=== PATIENT | male | born 1980 | race Caucasian/White ===

== ENCOUNTER 2018-03-02 12:16 | Emergency (ER) | payer BC, OTHER ==
[~2018-03-02] VITALS: Ht 177.8 cm; Wt 95.0 kg
[2018-03-02 12:24] VITALS: TEMP 37.1; Ht 177.8 cm; Wt 95.0 kg
[2018-03-02] MEDS ORDERED: CETI10TA10 PO (12:37)
[2018-03-02 13:33] LABS: BASO % 0.8 %; BASO ABS # 0.06 K/uL (0-0.2); EOS % 3.1 %; EOS ABS # 0.24 K/uL (0-0.5); HEMATOCRIT 43.1 % (42-52); HEMOGLOBIN 15.4 g/dL (14.0-18.0); IG# 0.01 K/uL (0.00-0.02); LYMPH % 24.3 %; MEAN CELL VOLUME 81.6 fL (80-100); MEAN CORPUSCULAR HEMOGLOBIN 29.2 pg (25-34); MEAN CORPUSCULAR HGB CONC 35.7 g/dl (32-36); MEAN PLATELET VOLUME 9.5 fL (7.4-10.4); MONO % 5.9 %; MONO ABS # 0.46 K/uL (0.11-0.59); NEUT % 65.8 %; NEUT ABS # 5.15 K/uL (1.4-6.5); PLATELET COUNT 288 K/uL (130-400); RED CELL DISTRIBUTION WIDTH CV 12.7 % (11.5-14.5); RED CELL DISTRIBUTION WIDTH SD 38.1 fL (36.4-46.3); WHITE BLOOD COUNT 7.82 K/uL (4.8-10.8)
[2018-03-02 13:45] LABS: PTT PATIENT 32.7 SECONDS (21.0-31.0)
[2018-03-02 13:47] LABS: ALBUMIN 4.1 gm/dl (3.4-5.0); ALT/SGPT 44 U/L (12-78); AST/SGOT 23 U/L (15-37); BLOOD UREA NITROGEN 13 mg/dl (7-18); CALCIUM 9.3 mg/dl (8.5-10.1); CARBON DIOXIDE 27 mmol/L (21-32); CREATININE 1.05 mg/dl (0.60-1.40); GLUCOSE 98 mg/dl (70-99); POTASSIUM 3.8 mmol/L (3.5-5.1); SODIUM 138 mmol/L (136-145)
[2018-03-02 13:56] LABS: ALKALINE PHOSPHATASE 76 U/L (45-117); TOTAL PROTEIN 7.5 gm/dl (6.4-8.2)
--- NOTE | 2018-03-02 14:05 | DIAGNOSTIC IMAGING REPORT ---
CHEST 2 VIEWS ROUTINE CLINICAL HISTORY: Suspected pneumonia COUGH COMPARISON STUDY: No previous studies for comparison. FINDINGS: The cardiac and mediastinal contours are normal. There is no evidence of focal pulmonary consolidation. There is no evidence of failure. No pleural effusions are visualized.[ IMPRESSION: No active disease in the chest. Electronically signed by: Trung Perez M.D. 03/02/2018 2:04 PM Dictated Date/Time: 03/02/2018 2:03 PM
[2018-03-02 15:48] VITALS: BP 133/87; PULSE 75; O2SAT 98
--- NOTE | 2018-03-02 19:56 | EMERGENCY ROOM VISIT NOTE ---
History Report prepared by Sujey: Nicolas Almanza Under the Supervision of: Dr. Carloz Nunn M.D. First contact with patient: 12:53 Chief Complaint: OTHER COMPLAINT Stated Complaint: LIGHT HEADED, ELEVATED PULSE, TINGLY FEELING History of Present Illness The patient is a 37 year old male who presents to the Emergency Room with complaints of lightheadedness occurring one hour ago. He was at a seminar and felt lightheaded as if he might pass out. His symptoms include lower central chest pressure, tingling, and lightheadedness. He localizes the tingling to the back of his left knee, and down his left arm into his hand. The patient states that all of his symptoms only lasted for about a minute, including the chest discomfort. He states that he stood up, and was standing for a few minutes when he began to feel lightheaded. He feels standing worsened his symptoms. The patient notes that he sat down at this time because he felt like he was likely going to pass out. He denies fevers, vomiting, SOB, vomiting, or abdominal pain. He has no cardiac history. He has no family history of sudden cardiac . The patient notes that he had cold-like symptoms last week. He ate and drank normally today. He denies prolonged immobilization or recent travel. The patient states that his ankles have been aching recently. He feels this is likely due to him walking around a lot. Source of History: patient Onset: one hour ago Position: head Quality: other (Lightheadedness) Timing: other (episode) Modifying Factors (Worsening): other (standing up) Associated Symptoms: + chest pain (low central), No fevers, No SOB, No vomiting, No abdominal pain Note: Positive: lightheadedness, and tingling behind the left knee and down the left arm. Review of Systems See HPI for pertinent positives & negatives. A total of 10 systems reviewed and were otherwise negative. Past Medical & Surgical Medical Problems: (1) History of intestinal surgery (2) No Known Active Medical Problems Family History No pertinent family history stated. Social History Smoking Status: Never Smoker Housing Status: lives with family Occupation Status: employed Current/Historical Medications Scheduled Cetirizine Hcl (Zyrtec), 10 MG PO DAILY Allergies Coded Allergies: No Known Allergies (Unverified , 03/02/18) Physical Exam Vital Signs Date Time Temp Pulse Resp B/P (MAP) Pulse Ox O2 Delivery O2 Flow Rate FiO2 03/02/18 15:48 75 18 133/87 98 03/02/18 15:48 75 18 133/87 98 Room Air 03/02/18 13:37 80 16 120/81 83 115/86 85 132/89 03/02/18 12:54 93 03/02/18 12:24 37.1 114 17 137/82 99 Room Air Physical Exam Constitutional: Vital signs reviewed. Eyes: Pupils are equal round reactive to light. Conjunctiva are noninjected. ENT: Pharynx is clear without erythema or exudate. Mucous membranes are moist. Neck supple without meningeal signs. Respiratory: Clear to auscultation bilaterally. Breath sounds are equal bilaterally. Cardiovascular: Regular rate and rhythm. No rubs or gallops. GI: Soft, nondistended and nontender. Bowel sounds are present. Musculoskeletal: No peripheral edema. No lower extremity tenderness. Integumentary: No cyanosis. Neurological: The patient is awake and alert. No focal deficits. Psychiatric: Normal affect. Medical Decision & Procedures ER Provider Diagnostic Interpretation: Radiology results as stated below per my review and the radiologist's interpretation: CHEST 2 VIEWS ROUTINE FINDINGS: The cardiac and mediastinal contours are normal. There is no evidence of focal pulmonary consolidation. There is no evidence of failure. No pleural effusions are visualized.[ IMPRESSION: No active disease in the chest. Electronically signed by: Trung Perez M.D. 03/02/2018 2:04 PM Laboratory Results 03/02/18 13:20 Red Blood Count 5.28, Mean Corpuscular Volume 81.6, Mean Corpuscular Hemoglobin 29.2, Mean Corpuscular Hemoglobin Concent 35.7, Mean Platelet Volume 9.5, Neutrophils (%) (Auto) 65.8, Lymphocytes (%) (Auto) 24.3, Monocytes (%) (Auto) 5.9, Eosinophils (%) (Auto) 3.1, Basophils (%) (Auto) 0.8, Neutrophils # (Auto) 5.15, Lymphocytes # (Auto) 1.90, Monocytes # (Auto) 0.46, Eosinophils # (Auto) 0.24, Basophils # (Auto) 0.06 03/02/18 13:20 Test 03/02/18 13:20 03/02/18 13:26 03/02/18 15:16 White Blood Count 7.82 K/uL (4.8-10.8) Red Blood Count 5.28 M/uL (4.7-6.1) Hemoglobin 15.4 g/dL (14.0-18.0) Hematocrit 43.1 % (42-52) Mean Corpuscular Volume 81.6 fL (80-100) Mean Corpuscular Hemoglobin 29.2 pg (25-34) Mean Corpuscular Hemoglobin Concent 35.7 g/dl (32-36) Platelet Count 288 K/uL (130-400) Mean Platelet Volume 9.5 fL (7.4-10.4) Neutrophils (%) (Auto) 65.8 % Lymphocytes (%) (Auto) 24.3 % Monocytes (%) (Auto) 5.9 % Eosinophils (%) (Auto) 3.1 % Basophils (%) (Auto) 0.8 % Neutrophils # (Auto) 5.15 K/uL (1.4-6.5) Lymphocytes # (Auto) 1.90 K/uL (1.2-3.4) Monocytes # (Auto) 0.46 K/uL (0.11-0.59) Eosinophils # (Auto) 0.24 K/uL (0-0.5) Basophils # (Auto) 0.06 K/uL (0-0.2) RDW Standard Deviation 38.1 fL (36.4-46.3) RDW Coefficient of Variation 12.7 % (11.5-14.5) Immature Granulocyte % (Auto) 0.1 % Immature Granulocyte # (Auto) 0.01 K/uL (0.00-0.02) Prothrombin Time 10.1 SECONDS (9.0-12.0) Prothromb Time International Ratio 1.0 (0.9-1.1) Activated Partial Thromboplast Time 32.7 SECONDS (21.0-31.0) Partial Thromboplastin Ratio 1.3 Anion Gap 5.0 mmol/L (3-11) Est Creatinine Clear Calc Drug Dose 112.5 ml/min Estimated GFR () 105.3 Estimated GFR (Non- 90.9 BUN/Creatinine Ratio 12.5 (10-20) Calcium Level 9.3 mg/dl (8.5-10.1) Magnesium Level 2.1 mg/dl (1.8-2.4) Total Bilirubin 0.4 mg/dl (0.2-1) Direct Bilirubin < 0.1 mg/dl (0-0.2) Aspartate Amino Transf (AST/SGOT) 23 U/L (15-37) Alanine Aminotransferase (ALT/SGPT) 44 U/L (12-78) Alkaline Phosphatase 76 U/L (45-117) Total Protein 7.5 gm/dl (6.4-8.2) Albumin 4.1 gm/dl (3.4-5.0) Thyroid Stimulating Hormone (TSH) 1.110 uIu/ml (0.300-4.500) Free Thyroxine 0.90 ng/dl (0.80-1.60) Bedside D-Dimer 65 ng/mlFEU (0-450) Bedside Troponin I < 0.030 ng/ml (0-0.045) Laboratory results as reviewed by me. ECG Per My Interpretation Indication: chest pain Rate (beats per minute): 91 Rhythm: normal sinus Findings: RBBB (incomplete), other (motion artifact limiting interpretation. No ST elevation. ) ED Course 1256: The patient was evaluated in room B12B. A complete history and physical exam was performed. 1415: I spoke with the patient. We discussed his test results. The patient will have a repeat troponin. 1528: Upon reevaluation, the patient appeared to have improvement of his symptoms. His repeat troponin was negative. I discussed tonight's findings with him. He verbalized agreement of the treatment plan. The patient was discharged home. Medical Decision This is a 37-year-old male who presents with lightheadedness, transient chest discomfort and paresthesias. Differential diagnosis includes metabolic derangement, dehydration, cardiac, infection, electrolyte abnormality, neurologic. I did perform a limited focused review of portions of the patient' s old chart on the electronic medical record. The patient has had no recent pertinent visits to this hospital. I did evaluate the patient as noted above. The patient is presenting with lightheadedness today. He did have transient symptoms including lower chest discomfort and paresthesias. These only lasted about a minute or so. He does not have any other significant symptoms. IV access was established. The patient was placed on a continuous surveillance system monitor. I did order and personally review the patient's 12-lead EKG and chest x-ray as described above. There is no evidence of acute ischemia on his twelve-lead EKG. He does have an incomplete right bundle branch block. There is no old EKG available for comparison. I did order and review the patient's blood work as noted in the electronic medical record. Troponin and d-dimer are negative. His electrolytes are unremarkable. I did order a second troponin which was drawn 90 minutes after the first which was 0. I did discuss the test results with the patient. I did explain to the patient and his that the cause of his symptoms is unclear at this time. I do not see an indication for hospitalization at this time. I did recommend close follow-up with his doctor and close monitoring of his symptoms given we do not have a clear etiology. He was given return instructions as outlined below and discharged in good condition. Medication Reconcilliation Current Medication List: was personally reviewed by me Blood Pressure Screening Patient's blood pressure: Elevated blood pressure Blood pressure disposition: Referred to PCP Impression Primary Impression: Generalized weakness Additional Impressions: Acute chest pain Paresthesias Scribe Attestation The scribe's documentation has been prepared under my direct and personally reviewed by me in its entirety. I confirm that the note above accurately reflects all work, treatment, procedures, and medical decision making performed by me. Departure Information Dispostion Home / Self-Care Referrals No Doctor, Assigned (PCP) Forms HOME CARE DOCUMENTATION FORM, IMPORTANT VISIT INFORMATION, WORK / SCHOOL INSTRUCTIONS Patient Instructions ED Chest Pain Atypical Unkn Cause, ED Dizziness [facility], ED Paraesthesias, My [facility] Additional Instructions You have been examined and treated today on an emergency basis only. This is not a substitute for, or an effort to provide, complete comprehensive medical care. It is impossible to recognize and treat all injuries or illnesses in a single emergency department visit. It is therefore important that you follow up closely with your physician. Call as soon as possible for an appointment. Return for worsening symptoms or if you develop fever, shortness of breath, vomiting, numbness or weakness on one side of your body, difficulties with your speech or walking, or any other concerning symptoms. Problem Qualifiers
== END 2018-03-02 15:49 | disposition home or self-care (01) ==
LOC: C.EDB 12:18
DX: R53.1 Weakness (principal); R07.9 Chest pain, unspecified; R20.2 Paresthesia of skin; Z79.899 Other long term (current) drug therapy